=== PATIENT | male | born 1980 | race Native Hawaiian/Other Pacific Islander ===

== ENCOUNTER 2016-08-24 09:57 | Emergency (ER) | payer OTHER ==
[~2016-08-24] VITALS: Ht 172.7 cm; Wt 74.8 kg
[2016-08-24 10:00] VITALS: TEMP 98
[2016-08-24 10:29] LABS: PLATELET COUNT 306 K/uL (142-355)
[2016-08-24 11:10] LABS: POTASSIUM 3.5 mmol/L (3.6-5.2); SODIUM 135 mmol/L (136-145)
[2016-08-24 13:56] VITALS: BP 126/78
== END 2016-08-24 14:01 | disposition home or self-care (01) ==
LOC: ED 09:57
PROVIDERS: Specialist
DX: R10.9 Unspecified abdominal pain (principal)
CPT/HCPCS: 36415; 80048; 80307; 81000; 85027; 96361; 96374; 96375; 99284; G0479; J1885; J2405; J3010